=== PATIENT | male | born 1945 | race Caucasian/White ===

== ENCOUNTER → 2021-11-12 | Outpatient (CLI) | payer MEDICARE ==
--- NOTE | 2021-11-12 22:19 | XR ---
EXAMINATION TYPE: XR Hip Complete LT DATE OF EXAM: 11/12/2021 CLINICAL HISTORY: Left hip pain. TECHNIQUE: AP and frogleg views of the left hip are obtained. COMPARISON: None. FINDINGS: Moderate to severe axial joint space loss. Femoral head shape is maintained. The overlying soft tissue appears unremarkable. IMPRESSION: As above.
== END | disposition home or self-care (01) ==
LOC: RADXRYALE 11:32
PROVIDERS: ATTEND Internal Medicine
DX: M25.552 Pain in left hip (principal)
CPT/HCPCS: 73502

== ENCOUNTER → 2021-11-14 | Outpatient (CLI) | payer MEDICARE ==
--- NOTE | 2021-11-14 11:26 | XR ---
EXAMINATION TYPE: XR shoulder complete RT DATE OF EXAM: 11/14/2021 CLINICAL HISTORY: Pain for 5 months TECHNIQUE: Three views of the right shoulder are obtained. COMPARISON: None. FINDINGS: There is no acute fracture/dislocation evident in the right shoulder. Mild narrowing gleno humeral joint. Acromioclavicular joint appears within normal limits. The visualized ribs are intact . IMPRESSION: As above.
== END | disposition home or self-care (01) ==
LOC: RADXRYALE 09:29
PROVIDERS: ATTEND Internal Medicine
DX: M25.811 Other specified joint disorders, right shoulder (principal)

== ENCOUNTER → 2022-12-09 | Outpatient (CLI) | payer MEDICARE ==
--- NOTE | 2022-12-09 12:58 | XR ---
EXAMINATION TYPE: XR Hip Complete LT DATE OF EXAM: 12/09/2022 COMPARISON: 11/12/2021 HISTORY: 77-year-old male [id number], hip pain TECHNIQUE: 2 views FINDINGS: There is moderate axial joint space narrowing at the hip. No acute fracture, subluxation, o r dislocation seen. 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 No acute osseous abnormality seen.
== END | disposition home or self-care (01) ==
LOC: RADXRYALE 11:27
PROVIDERS: ATTEND Internal Medicine
DX: M16.12 Unilateral primary osteoarthritis, left hip (principal)
CPT/HCPCS: 73502